=== PATIENT | female | born 1950 | race Hispanic/Latino ===

== ENCOUNTER → 2019-12-18 | Outpatient (CLI) | payer MEDICARE | LOC: MAMMO 11:45 | PROVIDERS: ATTEND Surgery | DX: N63.10 Unspecified lump in the right breast, unspecified quadrant (principal) | CPT/HCPCS: 77066 ==

== ENCOUNTER → 2020-12-17 | Outpatient (CLI) | payer MEDICARE | LOC: MAMMO 12:25 | PROVIDERS: ATTEND Surgery | DX: Z12.31 Encounter for screening mammogram for malignant neoplasm of breast (principal) | CPT/HCPCS: 77067 ==